=== PATIENT | female | born 2000 | race African-American/Black ===

== ENCOUNTER 2024-12-19 15:33 | Emergency (ER) | payer MEDICAID ==
[~2024-12-19] VITALS: Ht 165.1 cm; Wt 65.0 kg
[2024-12-19 15:37] VITALS: TEMP 36.9; O2SAT 99
[2024-12-19] MEDS: SODIUM CHLORIDE 0.9% 1,000 ML IV ONE (16:28)
[2024-12-19] MEDS: LEVETIRACETAM 1000MG PREMIX 100 ML IV ONE (16:28)
[2024-12-19 16:40] LABS: BASOPHILS % 0.1 % (0.0-2.0); DIFFERENTIAL COMMENT 0; EOSINOPHILS % 0.2 % (0.0-5.0); HEMATOCRIT. 38.2 % (36.0-48.0); HEMOGLOBIN. 11.3 g/dL (12.0-16.0); LYMPHOCYTES % 22.4 % (20.0-50.0); MEAN CORPUSCULAR HEMOGLOBIN 23.8 pg (28.0-32.0); MEAN CORPUSCULAR HGB CONC 29.6 g/dL (31.0-37.0); MEAN CORPUSCULAR VOLUME 80.3 fL (81.0-99.0); MEAN PLATELET VOLUME 8.5 fl (7.4-10.4); MONOCYTES % 6.6 % (2.0-8.0); NEUTROPHILS % 70.7 % (40.0-76.0); PLATELET 385 x1000/uL (130-400); RED BLOOD CELL COUNT 4.76 mill/uL (4.2-5.4); RED CELL DISTRIBUTION WIDTH 13.1 % (11.6-14.6)
[2024-12-19 16:45] LABS: CHLORIDE 101 mEq/L (98-107); POTASSIUM 3.6 mEq/L (3.5-5.1); SODIUM 140 mEq/L (136-145)
[2024-12-19 16:46] LABS: CALCIUM 10.7 mg/dL (8.7-10.4); CARBON DIOXIDE 14 mEq/L (21-32)
[2024-12-19 16:51] LABS: CREATININE 1.4 mg/dL (0.6-1.0); GLUCOSE 190 mg/dL (70-105); UREA NITROGEN BLOOD 12 mg/dL (9-23)
[2024-12-19 16:52] LABS: ETHANOL BLOOD < 10 mg/dL (<10)
[2024-12-19 16:55] LABS: HCG SCREEN NEGATIVE
[2024-12-19 17:15] LABS: PROTHROMBIN TIME 10.7 sec (9.6-11.0)
[2024-12-19] MEDS: ACETAMINOPHEN 325MG TABLET PO ONE (17:23)
[2024-12-19] MEDS: PHENYTOIN SODIUM 500 MG in SODIUM CHLORIDE 0.9% 100 ML IV NR (18:23)
[2024-12-19 18:30] VITALS: BP 109/72; PULSE 76; RESP 10; O2SAT 100
[2024-12-19] MEDS ORDERED: LAMO25TA9 MT (18:49)
== END 2024-12-19 19:15 | disposition home or self-care (01) ==
LOC: ER 15:33
DX: R56.9 Unspecified convulsions (principal); Z79.899 Other long term (current) drug therapy
CPT/HCPCS: 80048; 80320; 84703; 85025; 85610; 36415; 70450; 96365; 99285; J1165; J7050; J7030; G0480